=== PATIENT | female | born 1965 | race Hispanic/Latino ===

== ENCOUNTER 2017-10-29 15:45 | Observation (INO) | payer SELFPAY ==
[2017-10-29] MEDS ORDERED: Nitroglycerin 2% Ointment 1 INCH/1 GM Packet ONE (16:05)
[2017-10-29 16:15] LABS: #Eosinphils 0.2 thou/uL (0.0-0.7); #Lymphocytes 1.9 thou/uL (1.20-3.40); #Monocytes 0.3 thou/uL (0.11-0.59); #Neutrophils 6.6 thou/uL (1.40-6.50); %Basophils 0.2 % (0.0-1.0); %Eosinophils 1.9 % (0.0-10.0); %Monocytes 3.7 % (0.0-10.0); %Neutrophils 73.2 % (42.0-75.0); Hemoglobin 14.2 g/dL (12.0-16.0); Mean Corpuscular Hemoglobin 26.3 pg (27.0-31.0); Mean Corpuscular Volume 82.2 fl (81.0-99.0); Mean Platelet Volume 8.9 fL (7.4-10.4); Platelet Count 211 thou/uL (130-400); RBC Distribution Width 14.7 % (11.5-14.5)
[2017-10-29 16:40] LABS: ALT (SGPT) 13 U/L (8-55); AST (SGOT) 16 U/L (5-34); Albumin 3.9 g/dL (3.5-5.0); Alkaline Phosphatase 77 U/L (40-150); Anion Gap 15 mmol/L (10-20); BUN (Urea Nitrogen) 20 mg/dL (9.8-20.1); Bilirubin, Total 0.3 mg/dL (0.2-1.2); CK (CPK) 36 U/L (29-168); Calc. Creatinine Clearance 0 mL/min (70-130); Calcium 9.4 mg/dL (7.8-10.44); Carbon Dioxide 25 mmol/L (22-29); Chloride 102 mmol/L (98-107); Estimated GFR-MDRD 67; Glucose 140 mg/dL (70-105); Lipase 42 U/L (8-78); Magnesium 1.8 mg/dL (1.6-2.6); Potassium 3.7 mmol/L (3.5-5.1); Protein, Total 7.9 g/dL (6.0-8.3); Sodium 138 mmol/L (136-145)
--- NOTE | 2017-10-29 16:40 | RAD ---
SINGLE VIEW OF THE CHEST: 10/29/17 COMPARISON: 02/16/16 HISTORY: Chest pain and dizziness. FINDINGS: Single view of the chest shows a normal sized cardiomediastinal silhouette. There is no evidence of c onsolidation, mass, or pleural effusion. Degenerative changes are seen in the spine. IMPRESSION: No evidence of acute cardiopulmonary disease. POS: [facility]
[2017-10-29 16:45] LABS: CKMB 0.7 ng/mL (0-6.6); Troponin I Less than 0.010 ng/mL (< 0.028)
[2017-10-29] MEDS ORDERED: Ondansetron ODT 4 MG TAB ONE (17:00)
[2017-10-29] MEDS ORDERED: Morphine 4 MG/ML VIAL ONE (17:00)
[2017-10-29] MEDS ORDERED: Ondansetron HCl/PF 4 MG/2 ML Vial IVP PRN ×2 (18:33→18:34)
[2017-10-29] MEDS ORDERED: Ondansetron ODT 4 MG TAB SL PRN (18:33)
[2017-10-29] MEDS ORDERED: Morphine 4 MG/ML VIAL SLOW IVP PRN (18:33)
[2017-10-29] MEDS ORDERED: Sodium Chloride 0.9% 1,000 ML IV SCH (18:33)
[2017-10-29] MEDS ORDERED: Dextrose 50% Abboject 50 ML SYRINGE SLOW IVP PRN (18:34)
[2017-10-29] MEDS ORDERED: Dextrose 5% in Water 1,000 ML IV PRN (18:34)
[2017-10-29] MEDS ORDERED: Ondansetron ODT 4 MG TAB PO PRN (18:34)
[2017-10-29] MEDS ORDERED: HYDROcodone/Acetaminophen 5/325 mg Tablet PO PRN (18:34)
[2017-10-29] MEDS ORDERED: HumaLOG 300 UNITS/3 ML VIAL SC PRN (18:34)
[2017-10-29] MEDS ORDERED: Metoprolol Tartrate 25 MG TAB PO SCH (18:45)
[2017-10-29] MEDS ORDERED: Enoxaparin Sodium 40 MG/0.4 ML SYRINGE SC SCH (18:45)
[2017-10-29 19:09] VITALS: BMI 66.1
[2017-10-29 19:38] LABS: Troponin I Less than 0.010 ng/mL (< 0.028)
[2017-10-29] MEDS: busPIRone HCl 10 MG TAB PO SCH (20:35)
[2017-10-29] MEDS: Famotidine 20 MG TAB PO SCH (20:36)
[2017-10-29] MEDS ORDERED: Atorvastatin Calcium 10 MG TAB PO SCH (21:00)
[2017-10-29] MEDS ORDERED: traZODone HCl 150 MG TAB PO SCH (21:00)
[2017-10-29] MEDS: Nitroglycerin 2% Ointment 1 INCH/1 GM Packet TOP SCH (21:25)
--- NOTE | 2017-10-29 22:13 | HP ---
PRIMARY CARE PHYSICIAN: None. DATE OF ADMISSION: 10/29/2017 TIME OF SERVICE: 1800 hours. CHIEF COMPLAINT: Chest pain. HISTORY OF PRESENT ILLNESS: Ms. Griffin is a 52-year-old female known to our service from previous hos pitalizations, who presents to the emergency department today for evaluation of chest discomfort. The patient has been having chest pains on and off for about a week. That she describes as a sharp, stabbing and in the center of her chest. Today, she was sitting, doing nothing and had acute onset o f a sharp stabbing chest pain again, but this time radiating up into the right side of her neck. She says she felt short of breath, but denied any palpitations, she has got no edema, no fevers or chill s, no cough, sputum production, no nausea, vomiting, diarrhea, or constipation. She presented to the emergency department for evaluation. The pain persisted for a couple of hours u ntil she got into the emergency department. They gave her nitro paste and IV morphine in the same ti me and after she got those medicines, the pain dissipated and has not returned. She has had some inc reased shortness of breath and sleeping in a recliner. No PND or orthopnea, but does have HOOD. She does have a history of sleep apnea, but does not use a CPAP. Review of the records did show her last echocardiogram was attempted in 11/2016, it was a poor qualit y study. They were unable to get an EF and getting any approachable look at the valves. Her last cardiac evaluation otherwise was a PTCA in 02/2016 that showed no coronary artery disease do ne by Dr. Noonan. PAST MEDICAL HISTORY: 1. Hypertension. 2. Diabetes mellitus, type 2. 3. Cardiomegaly. 4. Insomnia. 5. Anxiety. 6. Depression. 7. PTSD. 8. Severe obesity. PAST SURGICAL HISTORY: Include: 1. Hysterectomy for fibroids. 2. Appendectomy in 1994. 3. Open cholecystectomy in 1983. 4. Bilateral tubal ligation in 1992. 5. Hernia repair. HOME MEDICATIONS: 1. Aspirin 81 mg daily. 2. Atorvastatin 10 mg p.o. at bedtime. 3. Buspirone 15 mg p.o. b.i.d. 4. Hydrochlorothiazide 25 mg p.o. daily 5. Hydroxyzine 50 mg p.o. t.i.d. p.r.n. agitation or to relax from [facility]. 6. Metformin 500 mg p.o. b.i.d. with meals. 7. Zoloft 100 mg p.o. daily. 8. Trazodone 150 mg p.o. at bedtime. ALLERGIES: NKDA. FAMILY HISTORY: Significant for premature coronary artery disease in the sibling. She does have his tory of coronary artery disease also in her dad. Mother had diabetes. No clotting or bleeding disor ders. No immune dysfunction. SOCIAL HISTORY: Negative for habits x3. She is and lives at home with her family. REVIEW OF SYSTEMS: A 10-point review of systems was performed and negative for all other systems exc ept as stated as per HPI. PHYSICAL EXAMINATION: VITAL SIGNS: Temperature 97.9, pulse on arrival was 109, but on arrival to the floor was 89, blood p ressure 140/81, respiratory rate 22, satting 96% on 2 liters nasal cannula. Weight is 294 pounds. S he is 4 feet 8 inches, BMI is 66. GENERAL: She is awake. She is alert. She is oriented x3. She is a severely obese f emale, who appears to be in no distress. HEENT: Normocephalic and atraumatic. Pupils are equal, round and reactive to light bilaterally, muc ous membranes are moist. She has no visible lesions, no thrush. Nasal cannula is in place. NECK: Obese and supple. Good range of motion. She has no lymphadenopathy. I cannot appreciate JVD . She has no carotid bruits. She has normal upstroke. LUNGS: Clear with bilateral diminished breath sounds. She has no wheezes, rales or rhonchi and no p rolonged expiratory phase. CARDIOVASCULAR: She has normal cardiac and regular. I can hear an S1, S2. I cannot hear any murmur s or S3, or S4. ABDOMEN: Severely obese. She has normoactive bowel sounds. It is nontender. No rebound or rigidit y. I cannot palpate internal organs. EXTREMITIES: No cyanosis, no clubbing. She has got no edema. Does have 2+ dorsalis pedis and poste rior tibial pulses. SKIN: Otherwise, warm, moist and well perfused. She has no rashes or lesions. NEUROLOGIC: Cranial nerves II-XII grossly intact without any focal neurologic deficit. She has norm al speech pattern. She has 5/5 strength. MUSCULOSKELETAL: Normal to inspection. Large joints appear normal. She has adequate range of motio n. She has had no palpable effusions. LABORATORY DATA: Sodium 138, potassium 3.7, chloride 102, bicarb 25, BUN 20, creatinine 0.88, glucos e 140 and calcium 9.4. Magnesium 1.8. Liver function bilirubin within normal limits. CBC showed a white count of 9.0, hemoglobin 14.2, hematocrit of 44.4, and platelet count is 211,000 w ith a normal differential. Lipase normal at 42. Her D-dimer was undetectable, less than 0.27. CK-MB was 0.7. Troponin I is un detectable, less than 0.010 and BNP is less than 10 amazingly. Chest x-ray showed no acute cardiopulmonary disease. Poor film due to body habitus. ASSESSMENT AND PLAN: 1. Chest pain, atypical. EKG showed no changes. The first set of biomarkers negative. We will neelam ce her on observation overnight. We will get serial cardiac biomarkers every 6 hours. If these are negative after discussion with Dr. Noonan, she can be discharged. They said with clean coronaries sh e had back in 02/2016 would not have progressed to any remembering significant plaques without acute cardiac event. 2. Severe obesity. 3. Sleep apnea. 4. Obesity hypoventilation syndrome - suspected. 5. Diabetes mellitus, type 2. 6. History of cardiomegaly. 7. Insomnia. 8. Anxiety. 9. Depression. 10. Post-traumatic stress disorder. We will continue home medications with the exception of her baby aspirin, hydroxyzine, and metformin. We will place her on metoprolol tartrate b.i.d., we will add nitro paste 1 inch to the chest wall q .8 hours and to keep her in continuous oxygen tonight. We will hold her metformin and start her on sliding scale corrective insulin. She will be on a diabe tic heart healthy diet tonight and n.p.o. after midnight in case her biomarkers are negative. I have cancelled the stress test that I originally ordered. I address to speak with Dr. Noonan and there i s no stress test ordered at this time as I anticipate these will be normal labs, she will be able to go home in the morning. I did not order an echocardiogram as she had extremely poor windows before a nd her body habitus has not changed.
[2017-10-29 22:36] LABS: Troponin I Less than 0.010 ng/mL (< 0.028)
[2017-10-29] MEDS: Acetaminophen 325 MG TAB PO PRN (23:03)
[2017-10-30 02:38] LABS: Troponin I Less than 0.010 ng/mL (< 0.028)
[2017-10-30] MEDS: Acetaminophen 325 MG TAB PO PRN ×2 (05:23→09:10)
[2017-10-30] MEDS: Nitroglycerin 2% Ointment 1 INCH/1 GM Packet TOP SCH (05:30)
[2017-10-30 06:42] LABS: #Eosinphils 0.2 thou/uL (0.0-0.7); #Lymphocytes 2.7 thou/uL (1.20-3.40); #Monocytes 0.4 thou/uL (0.11-0.59); #Neutrophils 4.1 thou/uL (1.40-6.50); %Basophils 0.4 % (0.0-1.0); %Eosinophils 3.2 % (0.0-10.0); %Lymphocytes 35.6 % (21.0-51.0); %Monocytes 5.7 % (0.0-10.0); %Neutrophils 55.1 % (42.0-75.0); Hemoglobin 13.6 g/dL (12.0-16.0); Mean Corpuscular HGB CONC 32.3 g/dL (32.0-36.0); Mean Corpuscular Hemoglobin 26.3 pg (27.0-31.0); Mean Corpuscular Volume 81.5 fl (81.0-99.0); Mean Platelet Volume 8.7 fL (7.4-10.4); Platelet Count 183 thou/uL (130-400); RBC Distribution Width 14.7 % (11.5-14.5); Red Blood Cell (RBC) Count 5.16 mill/uL (4.20-5.40); White Blood Cell (WBC) Count 7.5 thou/uL (4.8-10.8)
[2017-10-30 06:47] LABS: Hemoglobin A1c 5.8 % (4.0-6.0)
[2017-10-30 07:01] LABS: Anion Gap 11 mmol/L (10-20); BUN (Urea Nitrogen) 17 mg/dL (9.8-20.1); Calc. Creatinine Clearance 183 mL/min (70-130); Carbon Dioxide 27 mmol/L (22-29); Cardiac Risk 3.5 (Less than 4.5); Chloride 104 mmol/L (98-107); Cholesterol 145 mg/dl (< 200 Desired); Estimated GFR-MDRD 80; Glucose 121 mg/dL (70-105); HDL Cholesterol 42 mg/dL (>60 Neg Risk); LDL Cholesterol, Calculated 79 mg/dL; Magnesium 1.9 mg/dL (1.6-2.6); Sodium 138 mmol/L (136-145); Triglycerides 118 mg/dL (Less than 150)
[2017-10-30 07:03] LABS: CKMB 1.2 ng/mL (0-6.6); Troponin I Less than 0.010 ng/mL (< 0.028)
[2017-10-30 07:46] VITALS: BP 119/67; TEMP 97.6
[2017-10-30] MEDS ORDERED: Metoprolol Tartrate 25 MG TAB PO SCH (09:00)
[2017-10-30] MEDS ORDERED: Aspirin 325 MG TAB PO SCH (09:00)
[2017-10-30] MEDS ORDERED: Hydrochlorothiazide 25 MG TAB PO SCH (09:00)
[2017-10-30] MEDS: busPIRone HCl 10 MG TAB PO SCH (09:10)
[2017-10-30] MEDS: Famotidine 20 MG TAB PO SCH (09:10)
--- NOTE | 2017-10-30 13:45 | DIS ---
DATE OF ADMISSION: 10/29/2017 DATE OF DISCHARGE: 10/30/2017 PRIMARY CARE PHYSICIAN: [facility]. DISCHARGE DIAGNOSIS: Chest pain. CONDITION OF PATIENT AT THE TIME OF DISCHARGE: Stable. I assessed Ms. Griffin on the day of discharge . She denies any chest pain or shortness of breath. Vital signs are stable. S1 and S2 are heard, r egular. Lungs are clear to auscultation bilaterally. HOSPITAL COURSE: Ms. Griffin is a pleasant 52-year-old lady who was admitted on 10/29/2017 to [facility] for chest pain. Please refer to history and physical note from 10/29/2017 for further information. She had a negative D-dimer. Her chest pain resolved. Admitting physician discussed with Cardiology Service, who recommended monitoring her troponins and i f they are not abnormal, to discharge the patient home. When I saw her, she was chest pain free. Her troponins were all normal. I discussed with Cardiology Service and she is being discharged home. DISCHARGE MEDICATIONS: No changes were made to her home medications as dictated on history and physi ammy note from 10/29/2017. On the day of discharge, she has normal white count, normal hemoglobin, normal platelet count, and an unremarkable chem-7. She had triglycerides 118, cholesterol 145, LDL cholesterol 79, and HDL choles terol 42. Many thanks for allowing me to participate in your patient's care. Please feel free to contact me wi th any questions or concerns. DISCHARGE DESTINATION: Home.
== END 2017-10-30 10:05 | disposition home or self-care (01) ==
LOC: ERS 15:45 → 2SW 17:05
PROVIDERS: ADMIT Internal Medicine Infectious Disease; ATTEND Internal Medicine Infectious Disease
DX: R07.89 Other chest pain (principal); I10 Essential (primary) hypertension; E11.9 Type 2 diabetes mellitus without complications; I51.7 Cardiomegaly; G47.00 Insomnia, unspecified; G47.30 Sleep apnea, unspecified; F41.9 Anxiety disorder, unspecified; F32.9 Major depressive disorder, single episode, unspecified; F43.10 Post-traumatic stress disorder, unspecified; E66.01 Morbid (severe) obesity due to excess calories; Z68.44 Body mass index [BMI] 60.0-69.9, adult; Z79.82 Long term (current) use of aspirin; Z79.84 Long term (current) use of oral hypoglycemic drugs; Z79.899 Other long term (current) drug therapy; Z98.890 Other specified postprocedural states
CPT/HCPCS: 36415; 36416; 71045; 80048; 80053; 80061; 82550; 82553; 83036; 83690; 83735; 83880; 84484; 85025; 85379; 93005; 96361; 96374; G0378; J1650; J2270; Q0162

== ENCOUNTER 2018-03-30 14:44 | Emergency (ER) | payer SELFPAY ==
--- NOTE | 2018-03-30 15:47 | RAD ---
2 VIEWS CHEST: Date: 03/30/18 COMPARISON: 12/28/16 and 03/23/18. HISTORY: Patient recent fell in tub. Possible nodular density noted over the right upper lung zone on recent c hest radiograph. FINDINGS: Normal cardiac silhouette. Lungs and pleural spaces are clear. No pneumothorax or osseous abnormaliti es. Previously noted nodular density projecting over the right hemithorax is not appreciated currentl y. IMPRESSION: No acute cardiopulmonary process. POS: [facility]
== END 2018-03-30 16:53 | disposition home or self-care (01) ==
LOC: ERS 14:44
DX: R91.8 Other nonspecific abnormal finding of lung field (principal); E11.9 Type 2 diabetes mellitus without complications; I10 Essential (primary) hypertension; F41.9 Anxiety disorder, unspecified; Z79.899 Other long term (current) drug therapy; F43.10 Post-traumatic stress disorder, unspecified; Z79.82 Long term (current) use of aspirin; Z79.891 Long term (current) use of opiate analgesic
CPT/HCPCS: 71046

== ENCOUNTER 2018-04-21 20:19 | Emergency (ER) | payer SELFPAY ==
[2018-04-21 21:59] LABS: #Eosinphils 0.3 thou/uL (0.0-0.7); #Lymphocytes 2.2 thou/uL (1.20-3.40); #Monocytes 0.6 thou/uL (0.11-0.59); #Neutrophils 6.6 thou/uL (1.40-6.50); %Basophils 0.5 % (0.0-1.0); %Eosinophils 2.6 % (0.0-10.0); %Lymphocytes 22.8 % (21.0-51.0); %Monocytes 5.8 % (0.0-10.0); %Neutrophils 68.3 % (42.0-75.0); Hemoglobin 14.8 g/dL (12.0-16.0); Mean Corpuscular HGB CONC 32.4 g/dL (32.0-36.0); Mean Corpuscular Hemoglobin 26.7 pg (27.0-31.0); Mean Corpuscular Volume 82.4 fL (78.0-98.0); Mean Platelet Volume 9.1 fL (7.4-10.4); Platelet Count 205 thou/uL (130-400); RBC Distribution Width 14.8 % (11.5-14.5); Red Blood Cell (RBC) Count 5.54 mill/uL (4.20-5.40); White Blood Cell (WBC) Count 9.6 thou/uL (4.8-10.8)
[2018-04-21 22:21] LABS: ALT (SGPT) 13 U/L (8-55); AST (SGOT) 15 U/L (5-34); Alkaline Phosphatase 76 U/L (40-150); Anion Gap 14 mmol/L (10-20); BUN (Urea Nitrogen) 14 mg/dL (9.8-20.1); Bilirubin, Total 0.4 mg/dL (0.2-1.2); Calc. Creatinine Clearance 0 mL/min (70-130); Calcium 9.6 mg/dL (7.8-10.44); Carbon Dioxide 27 mmol/L (22-29); Chloride 99 mmol/L (98-107); Estimated GFR-MDRD 74; Glucose 121 mg/dL (70-105); Lipase 35 U/L (8-78); Potassium 3.6 mmol/L (3.5-5.1); Sodium 136 mmol/L (136-145)
[2018-04-21] MEDS ORDERED: Ondansetron ODT 4 MG TAB ONE (22:26)
[2018-04-21 22:54] LABS: Bilirubin Negative (Negative); Blood, Urine Negative (Negative); Clarity CLOUDY (Clear); Glucose, Urine (Dipstick) Negative (Negative); Leukocyte Large (Negative); Nitrite Negative (Negative); Protein, Urine (Dipstick) Negative (Neg-Trace); Specific Gravity, Urine 1.025 (1.002-1.036)
[2018-04-21 22:55] LABS: Bacteria/HPF None Seen HPF (None Seen); Pathc Cast-AUWi Flag 2.18 (0-2.49)
[2018-04-21 23:04] LABS: Hyaline Casts/LPF 0-3 HYALINE CAST LPF (0-3 Hyaline)
== END 2018-04-21 23:25 | disposition home or self-care (01) ==
LOC: ERS 20:19
DX: K29.70 Gastritis, unspecified, without bleeding (principal); N30.90 Cystitis, unspecified without hematuria; E11.9 Type 2 diabetes mellitus without complications; I11.9 Hypertensive heart disease without heart failure; F41.9 Anxiety disorder, unspecified; F32.9 Major depressive disorder, single episode, unspecified; F43.10 Post-traumatic stress disorder, unspecified; Z79.82 Long term (current) use of aspirin; Z79.84 Long term (current) use of oral hypoglycemic drugs; Z79.899 Other long term (current) drug therapy
CPT/HCPCS: 36415; 36416; 80053; 81003; 81015; 83690; 85025; 87086; 99284; Q0162

== ENCOUNTER 2018-05-09 14:24 | Emergency (ER) | payer SELFPAY ==
[2018-05-09 14:58] LABS: #Basophils 0.1 thou/uL (0.0-0.2); #Eosinphils 0.3 thou/uL (0.0-0.7); #Lymphocytes 2.2 thou/uL (1.20-3.40); #Monocytes 0.4 thou/uL (0.11-0.59); #Neutrophils 5.7 thou/uL (1.40-6.50); %Basophils 0.9 % (0.0-1.0); %Eosinophils 3.5 % (0.0-10.0); %Lymphocytes 25.3 % (21.0-51.0); %Monocytes 4.5 % (0.0-10.0); %Neutrophils 65.7 % (42.0-75.0); Hemoglobin 13.7 g/dL (12.0-16.0); Mean Corpuscular HGB CONC 32.1 g/dL (32.0-36.0); Mean Corpuscular Hemoglobin 26.5 pg (27.0-31.0); Mean Corpuscular Volume 82.5 fL (78.0-98.0); Mean Platelet Volume 9.2 fL (7.4-10.4); Platelet Count 217 thou/uL (130-400); RBC Distribution Width 14.3 % (11.5-14.5); Red Blood Cell (RBC) Count 5.16 mill/uL (4.20-5.40); White Blood Cell (WBC) Count 8.7 thou/uL (4.8-10.8)
[2018-05-09 15:19] LABS: ALT (SGPT) 14 U/L (8-55); AST (SGOT) 16 U/L (5-34); Albumin 3.7 g/dL (3.5-5.0); Alkaline Phosphatase 71 U/L (40-150); Anion Gap 13 mmol/L (10-20); BUN (Urea Nitrogen) 13 mg/dL (9.8-20.1); Bilirubin, Total 0.3 mg/dL (0.2-1.2); Calc. Creatinine Clearance 0 mL/min (70-130); Calcium 9.2 mg/dL (7.8-10.44); Carbon Dioxide 29 mmol/L (22-29); Chloride 99 mmol/L (98-107); Estimated GFR-MDRD 75; Glucose 132 mg/dL (70-105); Potassium 3.7 mmol/L (3.5-5.1); Protein, Total 7.7 g/dL (6.0-8.3); Sodium 137 mmol/L (136-145)
[2018-05-09 15:24] LABS: Troponin I Less than 0.010 ng/mL (< 0.028)
--- NOTE | 2018-05-09 17:18 | RAD ---
CHEST TWO VIEWS: 05/09/18 HISTORY: Dyspnea. COMPARISON: 03/30/18. FINDINGS: The cardiac silhouette and pulmonary vasculature remains upper limits of normal. Mediastinum is midli ne. No confluent air space consolidation, pneumothorax, or pleural fluid. pvc monitor leads over lie the chest. IMPRESSION: No active cardiopulmonary abnormalities are demonstrated. POS: [facility]
== END 2018-05-09 16:50 | disposition home or self-care (01) ==
LOC: ERS 14:24
DX: J40 Bronchitis, not specified as acute or chronic (principal); I10 Essential (primary) hypertension; F41.9 Anxiety disorder, unspecified; F43.10 Post-traumatic stress disorder, unspecified; Z79.84 Long term (current) use of oral hypoglycemic drugs; Z79.899 Other long term (current) drug therapy
CPT/HCPCS: 71046; 80053; 83880; 84484; 85025; 93005; 94640; J7620

== ENCOUNTER 2019-02-08 22:23 | Emergency (ER) | payer SELFPAY ==
[2019-02-08] MEDS ORDERED: HYDROcodone/Acetaminophen 10/325 mg Tablet ONE (22:50)
--- NOTE | 2019-02-09 07:37 | ULT ---
PRELIMINARY REPORT/[facility]/EMERGENCY AFTER HOURS PROCEDURE: EXAM: US Duplex Left Lower Extremity Veins, Limited EXAM DATE/TIME: 02/08/2019 11:45 PM CLINICAL HISTORY: 53 years old, female; Edema, localized; Lower extremity, left; Leg, lower; Patient HX: Lle pain/edema x 2 days TECHNIQUE: Imaging protocol: Real-time Duplex ultrasound of the Left Lower Extremity with 2-D berman scale, color Doppler flow and spectral waveform analysis with image documentation. Limited exam focused on the left lower extremity veins. COMPARISON: No relevant prior studies available. FINDINGS: Left deep veins: Unremarkable. The common femoral, femoral, proximal profunda femoral and popliteal veins are patent without thrombus. Normal Doppler waveforms. Normal compressibility and/or augmentation response. Left superficial veins: Unremarkable. Saphenofemoral junction is patent without thrombus. Soft tissues: Superficial edema. IMPRESSION: 1. Superficial edema. 2. No DVT. Thank you for allowing us to participate in the care of your patient. Dictated and Authenticated by: Jose Guadarrama MD 02/09/2019 12:15 AM Central Time ([place] & [place]) FINAL REPORT VENOUS DOPPLER ULTRASOUND OF THE LEFT LOWER EXTREMITY: FINDINGS/IMPRESSION: I agree with the preliminary report given by Dr. Jose Guadarrama of [facility]. Transcribed Date/Time: 02/09/2019 7:45 AM
== END 2019-02-09 00:23 | disposition home or self-care (01) ==
LOC: ERS 22:23
DX: M79.605 Pain in left leg (principal); E11.9 Type 2 diabetes mellitus without complications; I10 Essential (primary) hypertension; F41.9 Anxiety disorder, unspecified; F32.9 Major depressive disorder, single episode, unspecified; Z79.84 Long term (current) use of oral hypoglycemic drugs; Z79.899 Other long term (current) drug therapy

== ENCOUNTER 2019-06-17 22:25 | Emergency (ER) | payer SELFPAY ==
[2019-06-17] MEDS ORDERED: Ketorolac Tromethamine 30 MG/ML VIAL ONE (23:02)
== END 2019-06-17 23:33 | disposition home or self-care (01) ==
LOC: ERS 22:25
DX: M25.511 Pain in right shoulder (principal); E11.9 Type 2 diabetes mellitus without complications; I10 Essential (primary) hypertension; F41.9 Anxiety disorder, unspecified; F32.9 Major depressive disorder, single episode, unspecified; F43.10 Post-traumatic stress disorder, unspecified; Z79.899 Other long term (current) drug therapy; Z79.84 Long term (current) use of oral hypoglycemic drugs
CPT/HCPCS: 96372; 99283; J1885

== ENCOUNTER 2021-12-26 17:45 | Inpatient (IN) | payer SELFPAY ==
[2021-12-26 18:24] LABS: #Eosinphils 0.3 thou/uL (0.0-0.7); #Lymphocytes 2.3 thou/uL (1.20-3.40); #Monocytes 0.5 thou/uL (0.11-0.59); #Neutrophils 5.8 thou/uL (1.40-6.50); %Basophils 0.3 % (0.0-1.0); %Lymphocytes 25.7 % (21.0-51.0); %Monocytes 5.5 % (0.0-10.0); %Neutrophils 65.6 % (42.0-75.0); Mean Corpuscular HGB CONC 32.4 g/dL (32.0-36.0); Mean Corpuscular Hemoglobin 28.1 pg (27.0-31.0); Mean Corpuscular Volume 86.8 fL (78.0-98.0); Mean Platelet Volume 8.9 fL (7.4-10.4); Platelet Count 215 thou/uL (130-400); RBC Distribution Width 14.8 % (11.5-14.5); Red Blood Cell (RBC) Count 4.98 mill/uL (4.20-5.40); White Blood Cell (WBC) Count 8.9 thou/uL (4.8-10.8)
[2021-12-26 18:47] LABS: ALT (SGPT) 18 U/L (8-55); AST (SGOT) 19 U/L (5-34); Alkaline Phosphatase 69 U/L (40-110); Anion Gap 14 mmol/L (10-20); BUN (Urea Nitrogen) 13 mg/dL (9.8-20.1); Bilirubin, Total 0.4 mg/dL (0.2-1.2); Calc. Creatinine Clearance 0 mL/min (70-130); Calcium 9.1 mg/dL (7.8-10.44); Carbon Dioxide 25 mmol/L (22-29); Chloride 103 mmol/L (98-107); Globulin 4.2 g/dL (2.4-3.5); Glucose 116 mg/dL (70-105); Potassium 3.9 mmol/L (3.5-5.1); Protein, Total 8.2 g/dL (6.0-8.3); Sodium 138 mmol/L (136-145)
[2021-12-26] MEDS ORDERED: Nitrazine Tape 1 ROLL ONE (19:05)
[2021-12-26] MEDS ORDERED: Nitroglycerin 2% Ointment 1 INCH/1 GM Packet ONE (19:05)
[2021-12-26 20:28] VITALS: BMI 66.8
[2021-12-26] MEDS ORDERED: Nitroglycerin 0.4 MG TAB (25 Tab Bottle) SL PRN (21:29)
[2021-12-26] MEDS ORDERED: Acetaminophen 325 MG TAB PO PRN (21:30)
[2021-12-26] MEDS ORDERED: Ondansetron ODT 4 MG TAB PO PRN (21:30)
[2021-12-26] MEDS: hydrOXYzine 25 MG TAB PO PRN (21:50)
[2021-12-26 21:52] LABS: Troponin I Less than 0.010 ng/mL (< 0.028)
[2021-12-26] MEDS: Nitroglycerin 2% Ointment 1 INCH/1 GM Packet TOP SCH (21:54)
[2021-12-26] MEDS ORDERED: HumaLOG 300 UNITS/3 ML VIAL SC PRN ×2 (22:09)
[2021-12-26] MEDS ORDERED: Dextrose 50% Abboject 50 ML SYRINGE SLOW IVP PRN (22:09)
[2021-12-26] MEDS ORDERED: Dextrose 5% in Water 1,000 ML IV PRN (22:09)
[2021-12-26] MEDS ORDERED: Metoprolol Tartrate 25 MG TAB PO SCH (22:15)
[2021-12-27 00:51] LABS: Troponin I Less than 0.010 ng/mL (< 0.028)
[2021-12-27 05:29] LABS: #Eosinphils 0.4 thou/uL (0.0-0.7); #Lymphocytes 2.8 thou/uL (1.20-3.40); #Monocytes 0.5 thou/uL (0.11-0.59); #Neutrophils 5.1 thou/uL (1.40-6.50); %Basophils 0.4 % (0.0-1.0); %Eosinophils 4.1 % (0.0-10.0); %Lymphocytes 31.5 % (21.0-51.0); %Neutrophils 58.1 % (42.0-75.0); Hemoglobin 13.2 g/dL (12.0-16.0); Mean Corpuscular HGB CONC 32.3 g/dL (32.0-36.0); Mean Corpuscular Hemoglobin 28.3 pg (27.0-31.0); Mean Corpuscular Volume 87.6 fL (78.0-98.0); Mean Platelet Volume 8.8 fL (7.4-10.4); Platelet Count 209 thou/uL (130-400); RBC Distribution Width 14.8 % (11.5-14.5); Red Blood Cell (RBC) Count 4.67 mill/uL (4.20-5.40); White Blood Cell (WBC) Count 8.8 thou/uL (4.8-10.8)
[2021-12-27 05:41] LABS: Hemoglobin A1c 6.2 % (4.0-6.0)
[2021-12-27 05:57] LABS: Anion Gap 13 mmol/L (10-20); BUN (Urea Nitrogen) 15 mg/dL (9.8-20.1); Calc. Creatinine Clearance 151 mL/min (70-130); Calcium 9.2 mg/dL (7.8-10.44); Carbon Dioxide 26 mmol/L (22-29); Cardiac Risk 2.9 (Less than 4.5); Chloride 103 mmol/L (98-107); Cholesterol 113 mg/dl (< 200 Desired); Glucose 117 mg/dL (70-105); HDL Cholesterol 39 mg/dL (>60 Neg Risk); LDL Cholesterol, Calculated 57 mg/dL; Potassium 3.9 mmol/L (3.5-5.1); Sodium 138 mmol/L (136-145); Triglycerides 84 mg/dL (Less than 150)
[2021-12-27] MEDS: Nitroglycerin 2% Ointment 1 INCH/1 GM Packet TOP SCH ×2 (06:19→13:35)
[2021-12-27] MEDS ORDERED: Calcium Carbonate 500 MG ChewTAB PO PRN (07:32)
[2021-12-27] MEDS: busPIRone HCl 10 MG TAB PO SCH ×2 (08:08→20:42)
[2021-12-27] MEDS ORDERED: Metoprolol Tartrate 25 MG TAB PO SCH (09:00)
[2021-12-27] MEDS ORDERED: Lorazepam 0.5 MG TAB PO SCH (10:00)
[2021-12-27] MEDS ORDERED: Regadenoson 0.4 MG/5 ML SYRINGE ONE (10:03)
[2021-12-27] MEDS: Famotidine 20 MG TAB PO SCH ×2 (12:52→20:43)
[2021-12-27] MEDS: Enoxaparin Sodium 40 MG/0.4 ML SYRINGE SC SCH (12:53)
[2021-12-27] MEDS: Aspirin Chewable 81 MG TAB PO SCH (12:53)
[2021-12-27] MEDS: Atorvastatin Calcium 10 MG TAB PO SCH (20:43)
[2021-12-28 05:45] LABS: #Eosinphils 0.2 thou/uL (0.0-0.7); #Monocytes 0.5 thou/uL (0.11-0.59); #Neutrophils 5.1 thou/uL (1.40-6.50); %Basophils 0.2 % (0.0-1.0); %Eosinophils 2.5 % (0.0-10.0); %Lymphocytes 25.9 % (21.0-51.0); %Neutrophils 65.3 % (42.0-75.0); Hemoglobin 12.9 g/dL (12.0-16.0); Mean Corpuscular HGB CONC 31.8 g/dL (32.0-36.0); Mean Corpuscular Hemoglobin 27.8 pg (27.0-31.0); Mean Corpuscular Volume 87.4 fL (78.0-98.0); Mean Platelet Volume 9.1 fL (7.4-10.4); Platelet Count 188 thou/uL (130-400); RBC Distribution Width 14.8 % (11.5-14.5); Red Blood Cell (RBC) Count 4.65 mill/uL (4.20-5.40); White Blood Cell (WBC) Count 7.8 thou/uL (4.8-10.8)
[2021-12-28 06:06] LABS: Anion Gap 12 mmol/L (10-20); BUN (Urea Nitrogen) 15 mg/dL (9.8-20.1); Calc. Creatinine Clearance 186 mL/min (70-130); Calcium 8.9 mg/dL (7.8-10.44); Carbon Dioxide 26 mmol/L (22-29); Chloride 105 mmol/L (98-107); Glucose 137 mg/dL (70-105); Sodium 139 mmol/L (136-145)
[2021-12-28] MEDS: Famotidine 20 MG TAB PO SCH ×2 (08:10→21:18)
[2021-12-28] MEDS: Aspirin Chewable 81 MG TAB PO SCH (08:10)
[2021-12-28] MEDS: busPIRone HCl 10 MG TAB PO SCH ×2 (08:10→21:17)
[2021-12-28] MEDS: Enoxaparin Sodium 40 MG/0.4 ML SYRINGE SC SCH (08:11)
[2021-12-28] MEDS ORDERED: Lorazepam 0.5 MG TAB PO SCH (09:15)
[2021-12-28] MEDS ORDERED: Lorazepam 0.5 MG TAB PO PRN (18:19)
[2021-12-28] MEDS: Atorvastatin Calcium 10 MG TAB PO SCH (21:17)
[2021-12-29] MEDS ORDERED: Lidocaine 1% PF 5 ML VIAL ONE (07:09)
[2021-12-29] MEDS: Famotidine 20 MG TAB PO SCH ×2 (07:28→20:38)
[2021-12-29] MEDS: busPIRone HCl 10 MG TAB PO SCH ×2 (07:28→20:39)
[2021-12-29] MEDS: Aspirin Chewable 81 MG TAB PO SCH (07:29)
[2021-12-29] MEDS: Enoxaparin Sodium 40 MG/0.4 ML SYRINGE SC SCH (07:34)
[2021-12-29] MEDS: hydrOXYzine 25 MG TAB PO PRN (10:55)
[2021-12-29] MEDS ORDERED: Communication Order-Pharmacy FS SCH (19:15)
[2021-12-29] MEDS: Atorvastatin Calcium 10 MG TAB PO SCH (20:39)
[2021-12-29] MEDS: Sodium Chloride 0.9% 1,000 ML IV SCH (20:40)
[2021-12-30] MEDS: hydrOXYzine 25 MG TAB PO PRN (02:53)
[2021-12-30] MEDS: Sodium Chloride 0.9% 1,000 ML IV SCH (05:37)
[2021-12-30] MEDS ORDERED: Heparin 10,000 UNITS/ 10 ML VIAL ONE (06:30)
[2021-12-30] MEDS ORDERED: Verapamil 5 MG/2 ML VIAL ONE (06:30)
[2021-12-30] MEDS ORDERED: Lidocaine 1% (PF) 30 ML VIAL ONE (06:30)
[2021-12-30] MEDS ORDERED: Nitroglycerin 100MG/250ML BOT 250 ML ONE (06:30)
[2021-12-30] MEDS ORDERED: Fentanyl 100 MCG/2 ML VIAL ONE (07:29)
[2021-12-30] MEDS ORDERED: Sodium Chloride 0.9% 200 ML IV PRN (08:19)
[2021-12-30] MEDS ORDERED: Acetaminophen/Codeine 30-300mg Tablet PO PRN (08:19)
[2021-12-30] MEDS: busPIRone HCl 10 MG TAB PO SCH (08:20)
[2021-12-30] MEDS: Aspirin Chewable 81 MG TAB PO SCH (08:20)
[2021-12-30] MEDS: Famotidine 20 MG TAB PO SCH (08:21)
[2021-12-30] MEDS ORDERED: Sodium Chloride 0.9% 500 ML IV SCH (08:30)
[2021-12-30] MEDS ORDERED: Iopamidol 370 76% 100 ML VIAL ONE (09:17)
[2021-12-30 11:53] VITALS: BP 134/64; TEMP 98
[2021-12-31] MEDS ORDERED: Enoxaparin Sodium 40 MG/0.4 ML SYRINGE SC SCH (09:00)
== END 2021-12-30 14:08 | disposition home or self-care (01) | DRG 287 ==
LOC: ERS 17:45 → 2SW 19:22 → OBSVTOIN 12-27 09:33
PROVIDERS: ADMIT Family Medicine; ATTEND Internal Medicine
PROC: 4A023N7 Measurement of Cardiac Sampling and Pressure, Left Heart, Percutaneous Approach (ICD-10-PCS; principal; 2021-12-30)
PROC: B2111ZZ Fluoroscopy of Multiple Coronary Arteries using Low Osmolar Contrast (ICD-10-PCS; 2021-12-30)
DX: R07.89 Other chest pain (principal); Z68.44 Body mass index [BMI] 60.0-69.9, adult; Z20.822 Contact with and (suspected) exposure to COVID-19; E66.01 Morbid (severe) obesity due to excess calories; I10 Essential (primary) hypertension; E11.9 Type 2 diabetes mellitus without complications; F41.9 Anxiety disorder, unspecified; F32.A Depression, unspecified; F43.10 Post-traumatic stress disorder, unspecified; G47.33 Obstructive sleep apnea (adult) (pediatric); Z79.82 Long term (current) use of aspirin; Z79.84 Long term (current) use of oral hypoglycemic drugs; Z79.899 Other long term (current) drug therapy; Z90.710 Acquired absence of both cervix and uterus; Z90.49 Acquired absence of other specified parts of digestive tract; Z98.51 Tubal ligation status; Z82.49 Family history of ischemic heart disease and other diseases of the circulatory system; Z83.3 Family history of diabetes mellitus
CPT/HCPCS: 36415; 36416; 71045; 78452; 80048; 80053; 80061; 83036; 83735; 84443; 84484; 85025; 85379; 93005; 93017; 93458; 94760; 99152; A9500; G0378; J1644; J1650; J2001; J2785; J3010; J7050; Q0162; Q9967; U0003; U0005

== ENCOUNTER 2023-03-10 09:22 | Outpatient (CLI) | payer MEDICARE | END 2023-03-10 09:23 | disposition home or self-care (01) | LOC: BICMAMMO 09:22 | PROVIDERS: ATTEND Family Medicine | DX: Z12.31 Encounter for screening mammogram for malignant neoplasm of breast (principal) | CPT/HCPCS: 77063; 77067 ==

== ENCOUNTER 2025-03-30 20:30 | Emergency (ER) | payer MEDICARE, OTHER ==
[2025-03-30 21:10] LABS: #Basophils Less than 0.03 10x3/uL (0.0-0.2); #Eosinophils 0.07 10x3/uL (0.0-0.7); #Monocytes 0.49 10x3/uL (0.11-0.59); #Neutrophils 6.74 10x3/uL (1.40-6.50); %Basophils 0.2 % (0.0-1.0); %Eosinophils 0.8 % (0.0-10.0); %Lymphocytes 10.8 % (21.0-51.0); %Monocytes 5.9 % (0.0-10.0); %Neutrophils 81.8 % (42.0-75.0); Hematocrit 40.8 % (36.0-47.0); Hemoglobin 12.8 g/dL (12.0-16.0); Mean Corpuscular Hemoglobin 25.7 pg (27.0-31.0); Mean Corpuscular Volume 81.8 fL (78.0-98.0); Platelet Count 188 10x3/uL (130-400); Red Blood Cell (RBC) Count 4.99 mill/uL (4.20-5.40); White Blood Cell (WBC) Count 8.25 10x3/uL (4.8-10.8)
[2025-03-30 21:28] LABS: ALT (SGPT) 14 U/L (Less than 34); AST (SGOT) 27 U/L (11-34); Albumin 3.2 g/dL (3.1-4.5); Alkaline Phosphatase 72 U/L (40-110); Anion Gap 15 mmol/L (10-20); BUN (Urea Nitrogen) 13 mg/dL (9.8-20.1); Bilirubin, Total 0.8 mg/dL (0.3-1.2); Calc. Creatinine Clearance 0 mL/min (70-130); Calcium 8.6 mg/dL (7.8-10.44); Carbon Dioxide 24 mmol/L (22-29); Chloride 98 mmol/L (98-107); Globulin 4.2 g/dL (2.4-3.5); Glucose 242 mg/dL (70-105); Potassium 3.8 mmol/L (3.5-5.1); Sodium 133 mmol/L (136-145)
[2025-03-30] MEDS ORDERED: Dexamethasone 10 MG/ML VIAL ONE (22:49)
== END 2025-03-31 03:20 | disposition home or self-care (01) ==
LOC: ERS 20:30
DX: R06.03 Acute respiratory distress (principal); R50.9 Fever, unspecified; E11.9 Type 2 diabetes mellitus without complications; I10 Essential (primary) hypertension; Z79.84 Long term (current) use of oral hypoglycemic drugs; Z55.6 Problems related to health literacy
CPT/HCPCS: 71045; 80053; 83605; 83880; 84484; 85025; 87040; 87428; 93005; J1100; 36415; 71275; 87149; 96374; J7620

== ENCOUNTER 2025-04-01 12:14 | Inpatient (IN) | payer MEDICARE ==
[2025-04-01] MEDS ORDERED: Iopamidol-370 76% 500 ML MDV (1 ML CHARGE) ONE (13:34)
[2025-04-01] MEDS ORDERED: Ondansetron PF 4 MG/2 ML Vial ONE (13:57)
[2025-04-01] MEDS ORDERED: Acetaminophen 325 MG TAB ONE (13:57)
[2025-04-01] MEDS ORDERED: Ketorolac Tromethamine 30 MG (1 mL) VIAL ONE (13:57)
[2025-04-01 14:03] LABS: #Basophils 0.03 10x3/uL (0.0-0.2); #Eosinophils Less than 0.03 10x3/uL (0.0-0.7); #Monocytes 0.67 10x3/uL (0.11-0.59); #Neutrophils 8.57 10x3/uL (1.40-6.50); %Basophils 0.3 % (0.0-1.0); %Eosinophils 0.2 % (0.0-10.0); %Lymphocytes 5.6 % (21.0-51.0); %Monocytes 6.8 % (0.0-10.0); %Neutrophils 86.6 % (42.0-75.0); Hematocrit 42.7 % (36.0-47.0); Hemoglobin 13.6 g/dL (12.0-16.0); Mean Corpuscular Hemoglobin 26.0 pg (27.0-31.0); Mean Corpuscular Volume 81.5 fL (78.0-98.0); Platelet Count 172 10x3/uL (130-400); Red Blood Cell (RBC) Count 5.24 mill/uL (4.20-5.40); White Blood Cell (WBC) Count 9.89 10x3/uL (4.8-10.8)
[2025-04-01 14:16] LABS: INR-International Normal Ratio 1.2; Prothrombin Time 15.1 sec (12.0-14.7)
[2025-04-01 14:17] LABS: PTT 31.7 sec (22.9-36.1)
[2025-04-01 14:30] LABS: ALT (SGPT) 15 U/L (Less than 34); AST (SGOT) 30 U/L (11-34); Albumin 3.3 g/dL (3.1-4.5); Alkaline Phosphatase 71 U/L (40-110); Anion Gap 17 mmol/L (10-20); BUN (Urea Nitrogen) 13 mg/dL (9.8-20.1); Bilirubin, Total 0.8 mg/dL (0.3-1.2); Calc. Creatinine Clearance 0 mL/min (70-130); Calcium 8.8 mg/dL (7.8-10.44); Carbon Dioxide 23 mmol/L (22-29); Chloride 96 mmol/L (98-107); Globulin 4.5 g/dL (2.4-3.5); Glucose 231 mg/dL (70-105); Potassium 4.0 mmol/L (3.5-5.1); Sodium 132 mmol/L (136-145)
[2025-04-01] MEDS ORDERED: Guaifenesin DM 100-10/5 ML UDCUP PO PRN (15:35)
[2025-04-01] MEDS ORDERED: Melatonin 3 MG TAB PO PRN (15:35)
[2025-04-01] MEDS ORDERED: Acetaminophen/Codeine 30-300mg Tablet PO PRN (15:35)
[2025-04-01] MEDS ORDERED: Electrolyte Replacement Protocol 1 EACH FS SCH (15:45)
[2025-04-01] MEDS ORDERED: Glucagon 1 MG/ML KIT IM PRN (16:30)
[2025-04-01] MEDS ORDERED: Dextrose 50% Abboject 50 ML SYRINGE SLOW IVP PRN (16:30)
[2025-04-01] MEDS: Communication Order-Pharmacy FS ONE (18:57)
[2025-04-01] MEDS: Ketorolac Tromethamine 30 MG (1 mL) VIAL IVP SCH (18:58)
[2025-04-01] MEDS: Famotidine 20 MG TAB PO SCH (20:10)
[2025-04-01] MEDS: Acetaminophen 325 MG TAB PO PRN (20:10)
[2025-04-01] MEDS: Ondansetron PF 4 MG/2 ML Vial IVP PRN (22:25)
[2025-04-01 23:08] LABS: Actual Bicarbonate (HCO3v) 21.0 mEq/L (22-28); Base Excess -3.2 mEq/L (-2.0 to +3.0); Calcium, Ionized (venous) 0.99 mmol/L (1.16-1.32); Chloride (VBG) 97 mmol/L (98-106); Hematocrit-VBG 39 % (36.0-47.0); Hemoglobin (Hb) 13.4 g/dL (11.7-16.0); Potassium (VBG) 3.48 mmol/L (3.70-5.30); Sodium 131 mmol/L (133-146)
[2025-04-01 23:23] LABS: ALT (SGPT) 18 U/L (Less than 34); AST (SGOT) 40 U/L (11-34); Albumin 2.7 g/dL (3.1-4.5); Alkaline Phosphatase 85 U/L (40-110); Anion Gap 18 mmol/L (10-20); BUN (Urea Nitrogen) 16 mg/dL (9.8-20.1); Bilirubin, Total 1.3 mg/dL (0.3-1.2); Calc. Creatinine Clearance 134 mL/min (70-130); Calcium 7.9 mg/dL (7.8-10.44); Carbon Dioxide 17 mmol/L (22-29); Chloride 99 mmol/L (98-107); Globulin 3.9 g/dL (2.4-3.5); Glucose 192 mg/dL (70-105); Magnesium 1.2 mg/dL (1.6-2.6); Potassium 3.5 mmol/L (3.5-5.1); Sodium 130 mmol/L (136-145)
[2025-04-01 23:44] LABS: Hematocrit 39.0 % (36.0-47.0); Hemoglobin 12.5 g/dL (12.0-16.0); Mean Corpuscular Hemoglobin 26.0 pg (27.0-31.0); Mean Corpuscular Volume 81.3 fL (78.0-98.0); Platelet Count 120 10x3/uL (130-400); Red Blood Cell (RBC) Count 4.80 mill/uL (4.20-5.40); White Blood Cell (WBC) Count 3.11 10x3/uL (4.8-10.8)
[2025-04-02 00:06] LABS: Platelet Adequacy Comment Platelets Decreased; RBC Morphology Within Normal Limits; Smudge Cells 2.8 %
[2025-04-02] MEDS: Magnesium Sulfate In Water 4 GM in Premix 1 BAG IVPB SCH (01:36)
[2025-04-02] MEDS: Albumin 25% 25 GM (100 mL) BOT IVPB SCH ×2 (03:09→05:33)
[2025-04-02 03:13] LABS: Bacteria/HPF None Seen HPF (None Seen); CAUTI Indications for Culture Alt mental st,lethar; Glucose, Urine (Dipstick) 30 mg/dL (Negative); Leukocyte 250 Leu/uL (Negative); Protein, Urine (Dipstick) 70 mg/dL (Neg-Trace); Specific Gravity, Urine 1.033 (1.002-1.036); WBC/HPF 21-50 HPF (0-3)
[2025-04-02 03:17] LABS: Cocaine Metabolite Screen Negative (Negative); THC/Cannabinoid Screen Negative (Negative); Tricyclic Screen PRELIM POSITIVE (Negative)
[2025-04-02 03:27] LABS: Urine Culture Reflex Yes Yes
[2025-04-02] MEDS: NOREPINEPHRINE 8 MG/250 ML-D5W 250 ML ONE (03:52)
[2025-04-02] MEDS: NOREPINEPHRINE 8 MG/250 ML-D5W 250 ML IVPB SCH (03:52)
[2025-04-02 04:04] LABS: Hematocrit 36.2 % (36.0-47.0); Hemoglobin 11.3 g/dL (12.0-16.0); Mean Corpuscular Hemoglobin 25.9 pg (27.0-31.0); Mean Corpuscular Volume 82.8 fL (78.0-98.0); Platelet Count 132 10x3/uL (130-400); Red Blood Cell (RBC) Count 4.37 mill/uL (4.20-5.40); White Blood Cell (WBC) Count 13.30 10x3/uL (4.8-10.8)
[2025-04-02 04:17] LABS: ALT (SGPT) 17 U/L (Less than 34); AST (SGOT) 43 U/L (11-34); Albumin 2.4 g/dL (3.1-4.5); Alkaline Phosphatase 66 U/L (40-110); Anion Gap 16 mmol/L (10-20); BUN (Urea Nitrogen) 17 mg/dL (9.8-20.1); Bilirubin, Total 1.5 mg/dL (0.3-1.2); Calc. Creatinine Clearance 81 mL/min (70-130); Calcium 7.8 mg/dL (7.8-10.44); Carbon Dioxide 20 mmol/L (22-29); Chloride 97 mmol/L (98-107); Globulin 3.4 g/dL (2.4-3.5); Glucose 275 mg/dL (70-105); Magnesium 2.3 mg/dL (1.6-2.6); Potassium 3.8 mmol/L (3.5-5.1); Sodium 129 mmol/L (136-145)
[2025-04-02 05:33] LABS: Platelet Adequacy Comment Platelets Normal; RBC Morphology Within Normal Limits; Smudge Cells 3.9 %
[2025-04-02] MEDS: Enoxaparin 40 MG (0.4 mL) SYRINGE SC SCH (08:46)
[2025-04-02 11:48] VITALS: BMI 66.8
[2025-04-02] MEDS: Aspirin Chewable 81 MG TAB PO SCH (15:15)
[2025-04-02] MEDS: Sertraline 100 MG TAB PO SCH (15:16)
[2025-04-02] MEDS: QUEtiapine 300 MG TAB PO SCH (19:39)
[2025-04-02] MEDS ORDERED: Sertraline 100 MG TAB PO SCH (21:00)
[2025-04-03 05:14] LABS: Hematocrit 36.0 % (36.0-47.0); Hemoglobin 11.5 g/dL (12.0-16.0); Mean Corpuscular Hemoglobin 26.1 pg (27.0-31.0); Mean Corpuscular Volume 81.8 fL (78.0-98.0); Platelet Count 86 10x3/uL (130-400); Red Blood Cell (RBC) Count 4.40 mill/uL (4.20-5.40); White Blood Cell (WBC) Count 7.76 10x3/uL (4.8-10.8)
[2025-04-03 05:18] LABS: ALT (SGPT) 18 U/L (Less than 34); AST (SGOT) 39 U/L (11-34); Albumin 3.7 g/dL (3.1-4.5); Alkaline Phosphatase 61 U/L (40-110); Anion Gap 16 mmol/L (10-20); BUN (Urea Nitrogen) 21 mg/dL (9.8-20.1); Bilirubin, Total 1.5 mg/dL (0.3-1.2); Calc. Creatinine Clearance 108 mL/min (70-130); Calcium 8.7 mg/dL (7.8-10.44); Carbon Dioxide 19 mmol/L (22-29); Chloride 102 mmol/L (98-107); Globulin 3.2 g/dL (2.4-3.5); Glucose 156 mg/dL (70-105); Potassium 4.1 mmol/L (3.5-5.1); Sodium 133 mmol/L (136-145)
[2025-04-03 05:59] LABS: Nucleated RBC (Manual Ct) 1 % (0); Platelet Adequacy Comment Platelets Decreased; Polychromasia SLIGHT = 2-3 cells HPF (0-2)
[2025-04-03] MEDS: Aspirin Chewable 81 MG TAB PO SCH (07:58)
[2025-04-03] MEDS: Sertraline 100 MG TAB PO SCH (07:59)
[2025-04-03] MEDS: Metoprolol Tartrate 5 MG (5 mL) VIAL IVP SCH (23:30)
[2025-04-03] MEDS: dilTIAZem 25 MG/5 ML VIAL SLOW IVP SCH (23:30)
[2025-04-04] MEDS: Metoprolol Tartrate 5 MG (5 mL) VIAL ONE (01:01)
[2025-04-04] MEDS: Adenosine 6 mg (2 mL) VIAL ONE (01:02)
[2025-04-04] MEDS: dilTIAZem 25 MG/5 ML VIAL SLOW IVP SCH (01:34)
[2025-04-04 04:25] LABS: #Basophils Less than 0.03 10x3/uL (0.0-0.2); #Eosinophils 0.11 10x3/uL (0.0-0.7); #Monocytes 0.63 10x3/uL (0.11-0.59); #Neutrophils 6.74 10x3/uL (1.40-6.50); %Basophils 0.2 % (0.0-1.0); %Eosinophils 1.3 % (0.0-10.0); %Lymphocytes 12.4 % (21.0-51.0); %Monocytes 7.3 % (0.0-10.0); %Neutrophils 78.3 % (42.0-75.0); Hematocrit 32.5 % (36.0-47.0); Hemoglobin 10.6 g/dL (12.0-16.0); Mean Corpuscular Hemoglobin 26.2 pg (27.0-31.0); Mean Corpuscular Volume 80.2 fL (78.0-98.0); Platelet Count 100 10x3/uL (130-400); Red Blood Cell (RBC) Count 4.05 mill/uL (4.20-5.40); White Blood Cell (WBC) Count 8.61 10x3/uL (4.8-10.8)
[2025-04-04 04:33] LABS: ALT (SGPT) 13 U/L (Less than 34); AST (SGOT) 25 U/L (11-34); Albumin 3.1 g/dL (3.1-4.5); Alkaline Phosphatase 65 U/L (40-110); Anion Gap 16 mmol/L (10-20); BUN (Urea Nitrogen) 18 mg/dL (9.8-20.1); Bilirubin, Total 1.0 mg/dL (0.3-1.2); Calc. Creatinine Clearance 170 mL/min (70-130); Calcium 8.5 mg/dL (7.8-10.44); Carbon Dioxide 22 mmol/L (22-29); Chloride 100 mmol/L (98-107); Globulin 3.6 g/dL (2.4-3.5); Glucose 163 mg/dL (70-105); Potassium 3.8 mmol/L (3.5-5.1); Sodium 134 mmol/L (136-145)
[2025-04-04] MEDS ORDERED: Ipratropium Bromide 2.5 ml Neb NEB PRN (04:48)
[2025-04-04] MEDS: Ipratropium Bromide 2.5 ml Neb ONE (04:58)
[2025-04-04] MEDS: Furosemide 20 MG (2 mL) VIAL SLOW IVP SCH (05:24)
[2025-04-04 05:27] VITALS: BMI 68.1
[2025-04-04] MEDS: Amiodarone 150 MG, Admixture Fee 1 EACH in Dextrose 5% in Water 100 ML IVPB SCH (07:05)
[2025-04-04 08:09] LABS: Magnesium 2.4 mg/dL (1.6-2.6)
[2025-04-04] MEDS: Furosemide 40 MG (4 mL) VIAL SLOW IVP SCH (08:35)
[2025-04-04] MEDS: Digoxin 0.5 MG/2 ML AMP SLOW IVP SCH (18:45)
[2025-04-04] MEDS: Enoxaparin 40 MG (0.4 mL) SYRINGE SC SCH (20:16)
[2025-04-04] MEDS: Enoxaparin 100 MG (1 mL) SYRINGE SC SCH (20:17)
[2025-04-05 04:48] LABS: ALT (SGPT) 10 U/L (Less than 34); AST (SGOT) 18 U/L (11-34); Albumin 3.0 g/dL (3.1-4.5); Alkaline Phosphatase 73 U/L (40-110); Anion Gap 13 mmol/L (10-20); BUN (Urea Nitrogen) 20 mg/dL (9.8-20.1); Bilirubin, Total 1.1 mg/dL (0.3-1.2); Calc. Creatinine Clearance 149 mL/min (70-130); Calcium 8.5 mg/dL (7.8-10.44); Carbon Dioxide 29 mmol/L (22-29); Chloride 95 mmol/L (98-107); Globulin 3.7 g/dL (2.4-3.5); Glucose 183 mg/dL (70-105); Potassium 3.1 mmol/L (3.5-5.1); Sodium 134 mmol/L (136-145)
[2025-04-05 05:03] LABS: #Basophils Less than 0.03 10x3/uL (0.0-0.2); #Eosinophils 0.22 10x3/uL (0.0-0.7); #Monocytes 0.67 10x3/uL (0.11-0.59); #Neutrophils 5.37 10x3/uL (1.40-6.50); %Basophils 0.2 % (0.0-1.0); %Eosinophils 2.7 % (0.0-10.0); %Lymphocytes 21.3 % (21.0-51.0); %Monocytes 8.3 % (0.0-10.0); %Neutrophils 66.6 % (42.0-75.0); Hematocrit 34.5 % (36.0-47.0); Hemoglobin 10.7 g/dL (12.0-16.0); Mean Corpuscular Hemoglobin 25.4 pg (27.0-31.0); Mean Corpuscular Volume 81.9 fL (78.0-98.0); Platelet Count 112 10x3/uL (130-400); Red Blood Cell (RBC) Count 4.21 mill/uL (4.20-5.40); White Blood Cell (WBC) Count 8.07 10x3/uL (4.8-10.8)
[2025-04-05 10:31] LABS: Potassium 3.9 mmol/L (3.5-5.1)
[2025-04-06 04:45] LABS: #Basophils 0.04 10x3/uL (0.0-0.2); #Eosinophils 0.26 10x3/uL (0.0-0.7); #Monocytes 0.68 10x3/uL (0.11-0.59); #Neutrophils 5.07 10x3/uL (1.40-6.50); %Basophils 0.5 % (0.0-1.0); %Eosinophils 3.3 % (0.0-10.0); %Lymphocytes 22.1 % (21.0-51.0); %Monocytes 8.6 % (0.0-10.0); %Neutrophils 63.7 % (42.0-75.0); Hematocrit 33.6 % (36.0-47.0); Hemoglobin 10.5 g/dL (12.0-16.0); Mean Corpuscular Hemoglobin 25.9 pg (27.0-31.0); Mean Corpuscular Volume 83.0 fL (78.0-98.0); Platelet Count 152 10x3/uL (130-400); Red Blood Cell (RBC) Count 4.05 mill/uL (4.20-5.40); White Blood Cell (WBC) Count 7.95 10x3/uL (4.8-10.8)
[2025-04-06 05:12] LABS: Anion Gap 14 mmol/L (10-20); BUN (Urea Nitrogen) 19 mg/dL (9.8-20.1); Calc. Creatinine Clearance 198 mL/min (70-130); Calcium 8.7 mg/dL (7.8-10.44); Carbon Dioxide 29 mmol/L (22-29); Chloride 97 mmol/L (98-107); Glucose 128 mg/dL (70-105); Potassium 3.7 mmol/L (3.5-5.1); Sodium 136 mmol/L (136-145)
[2025-04-06] MEDS: Amiodarone 200 MG TAB PO SCH ×2 (13:43→20:48)
[2025-04-07 04:44] LABS: Hematocrit 35.0 % (36.0-47.0); Hemoglobin 11.0 g/dL (12.0-16.0); Mean Corpuscular Hemoglobin 25.8 pg (27.0-31.0); Mean Corpuscular Volume 82.2 fL (78.0-98.0); Platelet Count 201 10x3/uL (130-400); Red Blood Cell (RBC) Count 4.26 mill/uL (4.20-5.40); White Blood Cell (WBC) Count 9.54 10x3/uL (4.8-10.8)
[2025-04-07 05:32] LABS: Plasma Cells 3 % (0-0); Platelet Adequacy Comment Platelets Normal; RBC Morphology Within Normal Limits; Smudge Cells 13.9 %
[2025-04-08 04:35] LABS: Hematocrit 34.4 % (36.0-47.0); Hemoglobin 10.6 g/dL (12.0-16.0)
[2025-04-08] MEDS: Enoxaparin 30 MG (0.3 mL) SYRINGE SC SCH (20:18)
[2025-04-09 07:56] VITALS: TEMP 98.2
[2025-04-09 12:08] VITALS: BP 129/77
== END 2025-04-09 13:05 | disposition home or self-care (01) | DRG 871 ==
LOC: ERS 12:14 → SURG A 15:35 → IMCU/EMU 23:53 → CCU 04-02 05:18 → PCU 04-06 18:34
PROVIDERS: ADMIT Family Medicine; ATTEND Internal Medicine
PROC: 30233J1 Transfusion of Nonautologous Serum Albumin into Peripheral Vein, Percutaneous Approach (ICD-10-PCS; principal; 2025-04-02)
PROC: 3E03329 Introduction of Other Anti-infective into Peripheral Vein, Percutaneous Approach (ICD-10-PCS; 2025-04-02)
PROC: 3E033XZ Introduction of Vasopressor into Peripheral Vein, Percutaneous Approach (ICD-10-PCS; 2025-04-02)
PROC: 5A09357 Assistance with Respiratory Ventilation, Less than 24 Consecutive Hours, Continuous Positive Airway Pressure (ICD-10-PCS; 2025-04-02)
PROC: 5A1935Z Respiratory Ventilation, Less than 24 Consecutive Hours (ICD-10-PCS; 2025-04-03)
DX: A41.9 Sepsis, unspecified organism (principal); G93.41 Metabolic encephalopathy; R65.21 Severe sepsis with septic shock; J96.01 Acute respiratory failure with hypoxia; Z68.44 Body mass index [BMI] 60.0-69.9, adult; N39.0 Urinary tract infection, site not specified; I48.4 Atypical atrial flutter; E87.21 Acute metabolic acidosis; E11.9 Type 2 diabetes mellitus without complications; I10 Essential (primary) hypertension; G47.00 Insomnia, unspecified; F41.9 Anxiety disorder, unspecified; B96.20 Unspecified Escherichia coli [E. coli] as the cause of diseases classified elsewhere; E66.01 Morbid (severe) obesity due to excess calories; F32.A Depression, unspecified; E83.42 Hypomagnesemia; I48.91 Unspecified atrial fibrillation; E88.09 Other disorders of plasma-protein metabolism, not elsewhere classified; F43.10 Post-traumatic stress disorder, unspecified; Z90.710 Acquired absence of both cervix and uterus; Z90.49 Acquired absence of other specified parts of digestive tract; Z98.890 Other specified postprocedural states; Z98.51 Tubal ligation status; Z82.49 Family history of ischemic heart disease and other diseases of the circulatory system; Z83.3 Family history of diabetes mellitus; Z79.82 Long term (current) use of aspirin; Z79.899 Other long term (current) drug therapy; Z79.84 Long term (current) use of oral hypoglycemic drugs; R50.9 Fever, unspecified; Z55.6 Problems related to health literacy
CPT/HCPCS: 0439T; 36415; 36416; 70450; 71045; 71275; 80048; 80053; 80306; 81001; 82805; 83605; 83735; 83880; 84100; 84484; 85014; 85018; 85025; 85610; 85730; 87040; 87077; 87086; 87149; 87186; 87428; 93005; 93010; 93306; 94640; 94660; 94760; 96361; 96365; 96374; 96375; J0282; J1100; J1160; J1335; J1650; J1815; J1885; J1940; J2060; J2185; J3475; J3486; J7070; J7120; J7644; P9047; Q0177; Q9957; Q9967

== ENCOUNTER 2025-06-03 11:50 | Inpatient (IN) | payer MEDICARE ==
[2025-06-03 12:51] LABS: #Basophils 0.05 10x3/uL (0.0-0.2); #Eosinophils 0.25 10x3/uL (0.0-0.7); #Monocytes 0.63 10x3/uL (0.11-0.59); #Neutrophils 12.79 10x3/uL (1.40-6.50); %Basophils 0.3 % (0.0-1.0); %Eosinophils 1.6 % (0.0-10.0); %Lymphocytes 9.8 % (21.0-51.0); %Monocytes 4.1 % (0.0-10.0); %Neutrophils 83.3 % (42.0-75.0); Hematocrit 38.0 % (36.0-47.0); Hemoglobin 11.2 g/dL (12.0-16.0); Mean Corpuscular Hemoglobin 23.1 pg (27.0-31.0); Mean Corpuscular Volume 78.4 fL (78.0-98.0); Platelet Count 355 10x3/uL (130-400); Red Blood Cell (RBC) Count 4.85 mill/uL (4.20-5.40); White Blood Cell (WBC) Count 15.36 10x3/uL (4.8-10.8)
[2025-06-03] MEDS ORDERED: Cefepime 2 GM VIAL ONE (13:10)
[2025-06-03 13:12] LABS: ALT (SGPT) 7 U/L (Less than 34); AST (SGOT) 25 U/L (11-34); Albumin 2.6 g/dL (3.1-4.5); Alkaline Phosphatase 73 U/L (40-110); Anion Gap 17 mmol/L (10-20); BUN (Urea Nitrogen) 11 mg/dL (9.8-20.1); Bilirubin, Total 0.3 mg/dL (0.3-1.2); Calc. Creatinine Clearance 0 mL/min (70-130); Calcium 9.1 mg/dL (7.8-10.44); Carbon Dioxide 25 mmol/L (22-29); Chloride 99 mmol/L (98-107); Globulin 6.0 g/dL (2.4-3.5); Glucose 152 mg/dL (70-105); Potassium 3.8 mmol/L (3.5-5.1); Sodium 137 mmol/L (136-145)
[2025-06-03] MEDS ORDERED: VANCOMYCIN 2 GRAM/400 ML BAG ONE (14:21)
[2025-06-03 14:33] LABS: Bacteria/HPF 4+ HPF (None Seen); CAUTI Indications for Culture Fever or rigors; Glucose, Urine (Dipstick) Normal (Negative); Leukocyte 500 Leu/uL (Negative); Protein, Urine (Dipstick) 50 mg/dL (Neg-Trace); Specific Gravity, Urine 1.028 (1.002-1.036); WBC/HPF Greater than 50 HPF (0-3)
[2025-06-03 14:45] LABS: RBC/HPF 0-3 HPF (0-3)
[2025-06-03 14:46] LABS: Urine Culture Reflex Yes Yes
[2025-06-03] MEDS ORDERED: Calcium Carbonate 500 MG ChewTAB PO PRN (19:11)
[2025-06-03] MEDS ORDERED: Senokot S 8.6-50 MG TAB PO PRN (19:11)
[2025-06-03] MEDS ORDERED: Ondansetron PF 4 MG/2 ML Vial IVP PRN (19:11)
[2025-06-03] MEDS ORDERED: Glucagon 1 MG/ML KIT IM PRN (19:14)
[2025-06-03] MEDS: QUEtiapine 100 MG TAB PO SCH (21:17)
[2025-06-03] MEDS: Apixaban 5 MG TAB PO SCH (21:18)
[2025-06-03] MEDS: QUEtiapine 300 MG TAB PO SCH (21:32)
[2025-06-03 22:19] VITALS: BMI 52.4
[2025-06-04 05:35] LABS: ALT (SGPT) Less than 7 U/L (Less than 34); AST (SGOT) 18 U/L (11-34); Albumin 2.3 g/dL (3.1-4.5); Alkaline Phosphatase 61 U/L (40-110); Anion Gap 13 mmol/L (10-20); BUN (Urea Nitrogen) 10 mg/dL (9.8-20.1); Bilirubin, Total 0.4 mg/dL (0.3-1.2); Calc. Creatinine Clearance 150 mL/min (70-130); Calcium 8.7 mg/dL (7.8-10.44); Carbon Dioxide 27 mmol/L (22-29); Chloride 101 mmol/L (98-107); Globulin 5.1 g/dL (2.4-3.5); Glucose 140 mg/dL (70-105); Potassium 3.6 mmol/L (3.5-5.1); Sodium 137 mmol/L (136-145)
[2025-06-04 05:44] LABS: #Basophils 0.04 10x3/uL (0.0-0.2); #Eosinophils 0.27 10x3/uL (0.0-0.7); #Monocytes 0.64 10x3/uL (0.11-0.59); #Neutrophils 10.06 10x3/uL (1.40-6.50); %Basophils 0.3 % (0.0-1.0); %Eosinophils 2.1 % (0.0-10.0); %Lymphocytes 12.9 % (21.0-51.0); %Monocytes 5.0 % (0.0-10.0); %Neutrophils 78.6 % (42.0-75.0); Hematocrit 35.6 % (36.0-47.0); Hemoglobin 10.5 g/dL (12.0-16.0); Mean Corpuscular Hemoglobin 23.4 pg (27.0-31.0); Mean Corpuscular Volume 79.3 fL (78.0-98.0); Platelet Count 311 10x3/uL (130-400); Red Blood Cell (RBC) Count 4.49 mill/uL (4.20-5.40); White Blood Cell (WBC) Count 12.80 10x3/uL (4.8-10.8)
[2025-06-04] MEDS: glipiZIDE 5 MG TAB PO SCH (08:05)
[2025-06-04] MEDS: Aspirin Chewable 81 MG TAB PO SCH (08:05)
[2025-06-04] MEDS: Acetaminophen 325 MG TAB PO PRN (08:06)
[2025-06-04] MEDS: Amiodarone 200 MG TAB PO SCH (08:07)
[2025-06-04] MEDS: Sertraline 100 MG TAB PO SCH (08:07)
[2025-06-04] MEDS: Dextrose 50% Abboject 50 ML SYRINGE SLOW IVP PRN (11:04)
[2025-06-04] MEDS: QUEtiapine 100 MG TAB PO SCH (20:09)
[2025-06-05 04:51] LABS: #Basophils 0.04 10x3/uL (0.0-0.2); #Eosinophils 0.41 10x3/uL (0.0-0.7); #Monocytes 0.56 10x3/uL (0.11-0.59); #Neutrophils 9.32 10x3/uL (1.40-6.50); %Basophils 0.3 % (0.0-1.0); %Eosinophils 3.5 % (0.0-10.0); %Lymphocytes 12.0 % (21.0-51.0); %Monocytes 4.7 % (0.0-10.0); %Neutrophils 78.6 % (42.0-75.0); Hematocrit 33.8 % (36.0-47.0); Hemoglobin 10.1 g/dL (12.0-16.0); Mean Corpuscular Hemoglobin 23.6 pg (27.0-31.0); Mean Corpuscular Volume 79.0 fL (78.0-98.0); Platelet Count 320 10x3/uL (130-400); Red Blood Cell (RBC) Count 4.28 mill/uL (4.20-5.40); White Blood Cell (WBC) Count 11.87 10x3/uL (4.8-10.8)
[2025-06-05 04:58] LABS: Anion Gap 11 mmol/L (10-20); BUN (Urea Nitrogen) 9 mg/dL (9.8-20.1); Calc. Creatinine Clearance 164 mL/min (70-130); Calcium 8.7 mg/dL (7.8-10.44); Carbon Dioxide 28 mmol/L (22-29); Chloride 101 mmol/L (98-107); Glucose 148 mg/dL (70-105); Potassium 3.4 mmol/L (3.5-5.1); Sodium 137 mmol/L (136-145)
[2025-06-05 08:47] VITALS: BP 133/81; TEMP 98.1
== END 2025-06-05 14:48 | disposition home or self-care (01) | DRG 872 ==
LOC: SUATTDRO 11:50 → ERS 11:50 → MSONC 18:04 → OBSVTOIN 19:34
PROVIDERS: ADMIT Internal Medicine; ATTEND Family Medicine
DX: A41.9 Sepsis, unspecified organism (principal); N39.0 Urinary tract infection, site not specified; J96.11 Chronic respiratory failure with hypoxia; Z68.43 Body mass index [BMI] 50.0-59.9, adult; F33.9 Major depressive disorder, recurrent, unspecified; E11.9 Type 2 diabetes mellitus without complications; I48.0 Paroxysmal atrial fibrillation; E78.5 Hyperlipidemia, unspecified; E66.01 Morbid (severe) obesity due to excess calories; Z90.49 Acquired absence of other specified parts of digestive tract; Z90.710 Acquired absence of both cervix and uterus; Z98.890 Other specified postprocedural states; Z98.51 Tubal ligation status; Z82.49 Family history of ischemic heart disease and other diseases of the circulatory system; Z79.899 Other long term (current) drug therapy; Z79.82 Long term (current) use of aspirin; Z79.84 Long term (current) use of oral hypoglycemic drugs
CPT/HCPCS: 36415; 36416; 71045; 80048; 80053; 81001; 83605; 83880; 84484; 85025; 87040; 87077; 87086; 87186; 87428; 93005; 96376; G0378; J0692; J2185; J3375; J7120; J7999

== ENCOUNTER 2025-06-29 09:07 | Inpatient (IN) | payer MEDICARE ==
[2025-06-29 09:37] LABS: Hematocrit 34.7 % (36.0-47.0); Hemoglobin 10.9 g/dL (12.0-16.0); Mean Corpuscular Hemoglobin 23.4 pg (27.0-31.0); Mean Corpuscular Volume 74.6 fL (78.0-98.0); Platelet Count 368 10x3/uL (130-400); Red Blood Cell (RBC) Count 4.65 mill/uL (4.20-5.40); White Blood Cell (WBC) Count 15.67 10x3/uL (4.8-10.8)
[2025-06-29 10:00] LABS: #Basophils 0.04 10x3/uL (0.0-0.2); #Eosinophils 0.23 10x3/uL (0.0-0.7); #Monocytes 0.78 10x3/uL (0.11-0.59); #Neutrophils 13.02 10x3/uL (1.40-6.50); %Basophils 0.3 % (0.0-1.0); %Eosinophils 1.5 % (0.0-10.0); %Lymphocytes 9.6 % (21.0-51.0); %Monocytes 5.0 % (0.0-10.0); %Neutrophils 83.0 % (42.0-75.0); Ovalocytes SLIGHT = 2-5 cells HPF (0-1); Platelet Adequacy Comment Platelets Normal; Polychromasia SLIGHT = 2-3 cells HPF (0-2)
[2025-06-29 10:40] LABS: ALT (SGPT) Less than 7 U/L (Less than 34); AST (SGOT) 14 U/L (11-34); Albumin 2.5 g/dL (3.1-4.5); Alkaline Phosphatase 63 U/L (40-110); Anion Gap 18 mmol/L (10-20); BUN (Urea Nitrogen) 7 mg/dL (9.8-20.1); Bilirubin, Total 0.4 mg/dL (0.3-1.2); Calc. Creatinine Clearance 0 mL/min (70-130); Calcium 8.8 mg/dL (7.8-10.44); Carbon Dioxide 26 mmol/L (22-29); Chloride 97 mmol/L (98-107); Globulin 5.4 g/dL (2.4-3.5); Glucose 143 mg/dL (70-105); Lipase 20 U/L (8-78); Magnesium 1.9 mg/dL (1.6-2.6); Potassium 3.7 mmol/L (3.5-5.1); Sodium 137 mmol/L (136-145)
[2025-06-29 11:47] LABS: Bacteria/HPF None Seen HPF (None Seen); CAUTI Indications for Culture Fever or rigors; Glucose, Urine (Dipstick) Normal (Negative); Leukocyte Negative Leu/uL (Negative); Protein, Urine (Dipstick) Negative (Neg-Trace); RBC/HPF None Seen HPF (0-3); Specific Gravity, Urine 1.027 (1.002-1.036); WBC/HPF 0-3 HPF (0-3)
[2025-06-29 11:49] LABS: Urine Culture Reflex No No
[2025-06-29] MEDS ORDERED: Iopamidol 370 76% 100 ML VIAL ONE (14:46)
[2025-06-29] MEDS ORDERED: Senokot S 8.6-50 MG TAB PO PRN (16:24)
[2025-06-29] MEDS ORDERED: Ondansetron PF 4 MG/2 ML Vial IVP PRN (16:24)
[2025-06-29] MEDS ORDERED: Glucagon 1 MG/ML KIT IM PRN (16:24)
[2025-06-29] MEDS ORDERED: Calcium Carbonate 500 MG ChewTAB PO PRN (16:24)
[2025-06-29] MEDS ORDERED: Dextrose 50% Abboject 50 ML SYRINGE SLOW IVP PRN (16:24)
[2025-06-29 16:28] LABS: INR-International Normal Ratio 1.2; Prothrombin Time 15.2 sec (12.0-14.7)
[2025-06-29 16:29] LABS: PTT 27.8 sec (22.9-36.1)
[2025-06-29 18:31] VITALS: BMI 56.0
[2025-06-29 19:37] LABS: Hematocrit 38.4 % (36.0-47.0); Hemoglobin 11.4 g/dL (12.0-16.0)
[2025-06-29] MEDS: Acetaminophen 325 MG TAB PO PRN (21:38)
[2025-06-29] MEDS: QUEtiapine 100 MG TAB PO SCH (21:38)
[2025-06-30 05:39] LABS: ALT (SGPT) Less than 7 U/L (Less than 34); AST (SGOT) 11 U/L (11-34); Albumin 2.3 g/dL (3.1-4.5); Alkaline Phosphatase 64 U/L (40-110); Anion Gap 16 mmol/L (10-20); BUN (Urea Nitrogen) 6 mg/dL (9.8-20.1); Bilirubin, Total 0.5 mg/dL (0.3-1.2); Calc. Creatinine Clearance 168 mL/min (70-130); Calcium 8.9 mg/dL (7.8-10.44); Carbon Dioxide 23 mmol/L (22-29); Chloride 99 mmol/L (98-107); Globulin 5.0 g/dL (2.4-3.5); Glucose 162 mg/dL (70-105); Potassium 3.9 mmol/L (3.5-5.1); Sodium 134 mmol/L (136-145)
[2025-06-30 05:53] LABS: #Basophils 0.03 10x3/uL (0.0-0.2); #Eosinophils 0.12 10x3/uL (0.0-0.7); #Monocytes 0.68 10x3/uL (0.11-0.59); #Neutrophils 9.85 10x3/uL (1.40-6.50); %Basophils 0.3 % (0.0-1.0); %Eosinophils 1.0 % (0.0-10.0); %Lymphocytes 9.9 % (21.0-51.0); %Monocytes 5.7 % (0.0-10.0); %Neutrophils 82.5 % (42.0-75.0); Hematocrit 35.1 % (36.0-47.0); Hemoglobin 10.1 g/dL (12.0-16.0); Mean Corpuscular Hemoglobin 23.2 pg (27.0-31.0); Mean Corpuscular Volume 80.5 fL (78.0-98.0); Platelet Count 308 10x3/uL (130-400); Red Blood Cell (RBC) Count 4.36 mill/uL (4.20-5.40); White Blood Cell (WBC) Count 11.93 10x3/uL (4.8-10.8)
[2025-06-30] MEDS: Sertraline 100 MG TAB PO SCH (09:21)
[2025-07-01 06:00] LABS: #Basophils 0.03 10x3/uL (0.0-0.2); #Eosinophils 0.25 10x3/uL (0.0-0.7); #Monocytes 0.70 10x3/uL (0.11-0.59); #Neutrophils 8.45 10x3/uL (1.40-6.50); %Basophils 0.3 % (0.0-1.0); %Eosinophils 2.2 % (0.0-10.0); %Lymphocytes 15.6 % (21.0-51.0); %Monocytes 6.2 % (0.0-10.0); %Neutrophils 75.1 % (42.0-75.0); Hematocrit 32.5 % (36.0-47.0); Hemoglobin 9.7 g/dL (12.0-16.0); Mean Corpuscular Hemoglobin 23.1 pg (27.0-31.0); Mean Corpuscular Volume 77.4 fL (78.0-98.0); Platelet Count 325 10x3/uL (130-400); Red Blood Cell (RBC) Count 4.20 mill/uL (4.20-5.40); White Blood Cell (WBC) Count 11.25 10x3/uL (4.8-10.8)
[2025-07-01 06:47] LABS: ALT (SGPT) Less than 7 U/L (Less than 34); AST (SGOT) 13 U/L (11-34); Albumin 2.2 g/dL (3.1-4.5); Alkaline Phosphatase 61 U/L (40-110); Anion Gap 10 mmol/L (10-20); BUN (Urea Nitrogen) 11 mg/dL (9.8-20.1); Bilirubin, Total 0.4 mg/dL (0.3-1.2); Calc. Creatinine Clearance 176 mL/min (70-130); Calcium 8.6 mg/dL (7.8-10.44); Carbon Dioxide 25 mmol/L (22-29); Chloride 100 mmol/L (98-107); Globulin 4.8 g/dL (2.4-3.5); Glucose 142 mg/dL (70-105); Magnesium 2.0 mg/dL (1.6-2.6); Potassium 3.5 mmol/L (3.5-5.1); Sodium 131 mmol/L (136-145)
[2025-07-01 11:38] VITALS: BP 177/86; TEMP 98.4
[2025-07-01 14:11] VITALS: BMI 56.0
== END 2025-07-01 15:10 | disposition home or self-care (01) | DRG 872 ==
LOC: ERS 09:07 → ERHOLD 15:47 → 2NO 18:18
PROVIDERS: ADMIT Family Medicine; ATTEND Internal Medicine
DX: A41.9 Sepsis, unspecified organism (principal); J96.11 Chronic respiratory failure with hypoxia; S37.012A Minor contusion of left kidney, initial encounter; Z68.43 Body mass index [BMI] 50.0-59.9, adult; R65.20 Severe sepsis without septic shock; I10 Essential (primary) hypertension; E11.9 Type 2 diabetes mellitus without complications; F39 Unspecified mood [affective] disorder; J44.9 Chronic obstructive pulmonary disease, unspecified; E78.5 Hyperlipidemia, unspecified; F41.9 Anxiety disorder, unspecified; F32.A Depression, unspecified; F43.10 Post-traumatic stress disorder, unspecified; G47.33 Obstructive sleep apnea (adult) (pediatric); Z90.49 Acquired absence of other specified parts of digestive tract; Z90.710 Acquired absence of both cervix and uterus; Z98.890 Other specified postprocedural states; I48.0 Paroxysmal atrial fibrillation; E66.01 Morbid (severe) obesity due to excess calories; Z98.51 Tubal ligation status
CPT/HCPCS: 36415; 36416; 51701; 71045; 71275; 74176; 80053; 81001; 83605; 83690; 83735; 83880; 84484; 85025; 85379; 85610; 85730; 87040; 87086; 87428; 93005; 96365; J2185; Q9967

== ENCOUNTER 2025-07-11 17:31 | Inpatient (IN) | payer MEDICARE ==
[~2025-07-11 17:31] MED LIST: Iopamidol-370 76% 500 ML MDV (1 ML CHARGE) ONE
[2025-07-11] MEDS ORDERED: Dexamethasone 10 MG/ML VIAL ONE (18:43)
[2025-07-11] MEDS ORDERED: Albuterol 2.5 MG (3 mL) NEB ONE (18:43)
[2025-07-11] MEDS ORDERED: Magnesium 2 GM/50 ML BAG (IN WATER) ONE (18:44)
[2025-07-11 19:05] LABS: #Basophils 0.03 10x3/uL (0.0-0.2); #Eosinophils 0.12 10x3/uL (0.0-0.7); #Monocytes 0.50 10x3/uL (0.11-0.59); #Neutrophils 12.14 10x3/uL (1.40-6.50); %Basophils 0.2 % (0.0-1.0); %Eosinophils 0.9 % (0.0-10.0); %Lymphocytes 3.3 % (21.0-51.0); %Monocytes 3.8 % (0.0-10.0); %Neutrophils 91.1 % (42.0-75.0); Hematocrit 33.7 % (36.0-47.0); Hemoglobin 10.0 g/dL (12.0-16.0); Mean Corpuscular Hemoglobin 22.7 pg (27.0-31.0); Mean Corpuscular Volume 76.6 fL (78.0-98.0); Platelet Count 319 10x3/uL (130-400); Red Blood Cell (RBC) Count 4.40 mill/uL (4.20-5.40); White Blood Cell (WBC) Count 13.32 10x3/uL (4.8-10.8)
[2025-07-11] MEDS ORDERED: LevoFLOXacin 750 mg/D5W 150 ml Premix Bag ONE (19:16)
[2025-07-11 19:21] LABS: ALT (SGPT) 7 U/L (Less than 34); AST (SGOT) 22 U/L (11-34); Albumin 2.4 g/dL (3.1-4.5); Alkaline Phosphatase 77 U/L (40-110); Anion Gap 18 mmol/L (10-20); BUN (Urea Nitrogen) 8 mg/dL (9.8-20.1); Bilirubin, Total 0.4 mg/dL (0.3-1.2); Calc. Creatinine Clearance 0 mL/min (70-130); Calcium 8.5 mg/dL (7.8-10.44); Carbon Dioxide 27 mmol/L (22-29); Chloride 94 mmol/L (98-107); Globulin 5.1 g/dL (2.4-3.5); Glucose 157 mg/dL (70-105); Potassium 4.2 mmol/L (3.5-5.1); Sodium 135 mmol/L (136-145)
[2025-07-11] MEDS ORDERED: Ondansetron PF 4 MG/2 ML Vial ONE (19:30)
[2025-07-11 19:35] LABS: Actual Bicarbonate (HCO3a) 24.1 mEq/L (22-28); Analyzer IN Cardio ER; Base Excess (BEa) -0.3 mEq/L (-2.0 to +3.0); CO2 Tension 38.2 mmHg (35.0-45.0); Calcium, Ionized (arterial) 1.10 mmol/L (1.12-1.30); Hematocrit-ABG 32 % (36.0-47.0); Hemoglobin (Hb) 10.9 g/dL (12.0-16.0); O2 Tension (PaO2), arterial 61.1 mmHg (> 80.0); Potassium - ABG Lab 3.83 mmol/L (3.70-5.30); pH, Arterial 7.417 (7.35-7.45)
[2025-07-11 20:01] LABS: Puncture Site Left Radial artery
[2025-07-11 21:13] LABS: CAUTI Indications for Culture < 2yrs of age; Glucose, Urine (Dipstick) Normal (Negative); Leukocyte 250 Leu/uL (Negative); Protein, Urine (Dipstick) Negative (Neg-Trace); RBC/HPF 0-3 HPF (0-3); WBC/HPF None Seen HPF (0-3)
[2025-07-11 21:15] LABS: Bacteria/HPF Rare-Few HPF (None Seen); Specific Gravity, Urine Greater than 1.050 (1.002-1.036)
[2025-07-11 21:16] LABS: Urine Culture Reflex Yes Yes
[2025-07-11] MEDS ORDERED: Acetaminophen 500 MG TAB ONE (22:21)
[2025-07-11] MEDS ORDERED: Ondansetron PF 4 MG/2 ML Vial IVP PRN (22:28)
[2025-07-11] MEDS ORDERED: Dextrose 50% Abboject 50 ML SYRINGE SLOW IVP PRN (22:30)
[2025-07-11] MEDS ORDERED: Glucagon 1 MG/ML KIT IM PRN (22:30)
[2025-07-12 01:10] VITALS: BMI 57.5
[2025-07-12] MEDS: Acetaminophen 325 MG TAB PO PRN (04:36)
[2025-07-12 06:33] LABS: #Basophils Less than 0.03 10x3/uL (0.0-0.2); #Eosinophils Less than 0.03 10x3/uL (0.0-0.7); #Monocytes 0.17 10x3/uL (0.11-0.59); #Neutrophils 11.05 10x3/uL (1.40-6.50); %Basophils 0.2 % (0.0-1.0); %Eosinophils 0.0 % (0.0-10.0); %Lymphocytes 3.1 % (21.0-51.0); %Monocytes 1.5 % (0.0-10.0); %Neutrophils 94.3 % (42.0-75.0); Hematocrit 30.6 % (36.0-47.0); Hemoglobin 9.3 g/dL (12.0-16.0); Mean Corpuscular Hemoglobin 23.1 pg (27.0-31.0); Mean Corpuscular Volume 75.9 fL (78.0-98.0); Platelet Count 319 10x3/uL (130-400); Red Blood Cell (RBC) Count 4.03 mill/uL (4.20-5.40); White Blood Cell (WBC) Count 11.71 10x3/uL (4.8-10.8)
[2025-07-12 06:54] LABS: Anion Gap 14 mmol/L (10-20); BUN (Urea Nitrogen) 8 mg/dL (9.8-20.1); Calc. Creatinine Clearance 174 mL/min (70-130); Calcium 8.6 mg/dL (7.8-10.44); Carbon Dioxide 23 mmol/L (22-29); Chloride 97 mmol/L (98-107); Glucose 198 mg/dL (70-105); Potassium 4.0 mmol/L (3.5-5.1); Sodium 130 mmol/L (136-145)
[2025-07-12] MEDS: metFORMIN 500 MG TAB PO SCH (08:20)
[2025-07-12] MEDS: Cholecalciferol 1,000 UNITS (25 MCG) TAB PO SCH (08:20)
[2025-07-12] MEDS: predniSONE 20 MG TAB PO SCH (08:20)
[2025-07-12] MEDS: Sertraline 100 MG TAB PO SCH (08:20)
[2025-07-12 11:58] VITALS: BP 141/65; TEMP 98.4
[2025-07-12] MEDS ORDERED: LevoFLOXacin 750 mg/D5W 750 MG in Premix 1 BAG IVPB SCH (20:00)
[2025-07-13] MEDS ORDERED: PNEUMOC 20-VAL CONJ-DIP CRM/PF 0.5 ML SYRINGE IM ONE (09:00)
== END 2025-07-12 11:49 | disposition home or self-care (01) | DRG 871 ==
LOC: ERS 17:31 → ERHOLD 22:28 → T4-A 07-12 01:01
PROVIDERS: ADMIT Internal Medicine; ATTEND Internal Medicine
DX: A41.89 Other specified sepsis (principal); J96.21 Acute and chronic respiratory failure with hypoxia; I48.92 Unspecified atrial flutter; Z68.43 Body mass index [BMI] 50.0-59.9, adult; J20.8 Acute bronchitis due to other specified organisms; E78.5 Hyperlipidemia, unspecified; E11.9 Type 2 diabetes mellitus without complications; I10 Essential (primary) hypertension; G47.33 Obstructive sleep apnea (adult) (pediatric); E66.01 Morbid (severe) obesity due to excess calories; F43.10 Post-traumatic stress disorder, unspecified; F41.9 Anxiety disorder, unspecified; F32.A Depression, unspecified; G47.00 Insomnia, unspecified; D64.9 Anemia, unspecified; Z90.49 Acquired absence of other specified parts of digestive tract; Z90.710 Acquired absence of both cervix and uterus; Z98.890 Other specified postprocedural states; Z98.51 Tubal ligation status; Z79.84 Long term (current) use of oral hypoglycemic drugs
CPT/HCPCS: 36415; 36416; 36600; 71045; 71275; 80048; 80053; 81001; 82805; 83605; 83880; 84484; 85025; 85379; 87040; 87077; 87086; 87186; 87428; 93005; 94640; 94644; 96365; 96366; 96368; 96375; J1100; J1815; J1956; J2060; J2405; J3475; J7512; J7611; Q9967